=== PATIENT | male | born 1980 | race Caucasian/White ===

== ENCOUNTER → 2016-09-28 | Day surgery (SDC) | payer BC ==
[2016-09-17 13:58] VITALS: Ht 177.8 cm; Wt 95.5 kg
[~2016-09-28] VITALS: Ht 177.8 cm; Wt 95.5 kg
[~2016-09-28] MED LIST: ATROPINE SULFATE 0.1 MG/ML 5ML SYR IV PRN; EpHEDrine SULFATE INJ 50 MG/ML AMP IV PRN; FENTANYL CITRATE INJ 50 MCG/1 ML 2 ML VIAL ONE; LIDOCAINE HCL 2% 2 ML VIAL (20MG/ML) ONE; PROPOFOL IV EMULSION 10 MG/ML 20 ML VIAL IV ONE; PSYL48.59 PO
--- NOTE | 2016-09-28 11:45 | Endo History and Physical ---
History & Physical Date of Service: Sep 28, 2016. Chief Complaint: bowel habit change, diarrhea Referring Physician: Dr Jhon Stevens History of Present Illness 36 yo CM who presents for colonoscopy secondary to diarrhea. Past Surgical History Hx Cardiac Surgery: No Hx Internal Defibrillator: No Hx Pacemaker: No Hx Abdominal Surgery: No Hx of Implantable Prosthesis: No Hx Post-Op Nausea and Vomiting: No Hx Cancer Surgery: No Hx Thoracic Surgery: No Hx Orthopedic: Yes (BACK INJECTIONS WITH ANESTHESIA) Hx Urinary Tract Surgery: No Family History IBD Social History Smoking Status: Never Smoker Hx Substance Use: No Hx Alcohol Use: Yes (OCCASIONAL) Allergies Coded Allergies: No Known Allergies (Unverified , 09/17/16) Current Medications Reported Home Medications Medications Dose Route/Sig Max Daily Dose Days Date Category Metamucil (Psyllium) 48.57 % Pow 1 Tbs PO QAM 09/17/16 Reported Vital Signs Weight (Kilograms): 95.45 Height (Feet): 5 Height (Inches): 10 Date Time Temp Pulse Resp B/P Pulse Ox O2 Delivery O2 Flow Rate FiO2 09/28/16 11:23 37 66 20 109/61 98 Room Air Physical Exam General Appearance: WD/WN, no apparent distress Respiratory/Chest: Auscultation: breath sounds normal Cardiovascular: Heart Auscultation: RRR Abdomen: Bowel Sounds: normal Inspection & Palpation: soft, non-distended, no tenderness, guarding & rebound Assessment and Plan Assessment: 36 yo CM who presents for colonoscopy secondary to diarrhea. Plan: Proceed with colonoscopy.
--- NOTE | 2016-09-28 12:05 | Discharge Instructions ---
Endoscopy Patient Instructions Date / Procedure(s) Performed Sep 28, 2016. Colonoscopy Allergy Information Coded Allergies: No Known Allergies (Unverified , 09/17/16) Discharge Date / Findings Sep 28, 2016. Colon polyp Random colon biopsies Stool aspirate collected Medication Instructions Stopped Medication(s): metamucil Restart Stopped Medication(s): OK to resume all medications today as prescribed. Reported Home Medications Medications Dose Route/Sig Max Daily Dose Days Date Category Metamucil (Psyllium) 48.57 % Pow 1 Tbs PO QAM 09/17/16 Reported Provider Instructions Activity Restrictions - No exercising or heavy lifting for 24 hours. - Do not drink alcohol the day of the procedure. - Do not drive a car or operate machinery until the day after the procedure. - Do not make any important decisions or sign important papers in 24 hours after the procedure. Following Day: - Return to full activity which may include returning to work/school. Diet Start your diet with liquids and light foods (jello, soup, juice, toast). Then eat your usual diet if not nauseated. Treatment For Common After Affects For mild abdominal pain, bloating, or excessive gas: - Rest - Eat lightly - Lie on right side Follow-Up Information Follow-up with Dr Jhon Stevens as scheduled Anesthesia Information What You Should Know You have had a procedure that required some medicine to reduce anxiety and discomfort. This treatment is called moderate sedation. After receiving the treatment, you may be sleepy, but you will be able to breathe on your own. The effects of the treatment may last for several hours. Follow these instructions along with Activity/Diet recommendations noted above: * Do NOT do anything where dizziness or clumsiness would be dangerous. * Rest quietly at home today, then you can be up and about tomorrow. * Have a responsible person stay with you the rest of today. * You may have had an I.V. today. If so, you may take the dressing off later today. Recommendations Call your doctor if: * Trouble breathing * Continuous vomiting for more than 24 hours * Temperature above 101 degrees * Severe abdominal pain or bloating * Pain not relieved by pain medicine ordered * There is increased drainage or redness from any incision * A large amount of rectal bleeding greater than 2-3 tablespoons. (If you had a polyp/s removed or have hemorrhoids, a small amount of blood - from the rectum is to be expected.) * You have any unanswered questions or concerns. IN THE EVENT OF A SERIOUS EMERGENCY, GO TO THE NEAREST EMERGENCY ROOM Your discharge instructions were prepared by provider Ascencion Delvalle. Patient Instructions Signature Page Saul Garsia Patient (or Guardian) Signature/Date: I have read and understand the instructions given to me by my caregivers. Caregiver/RN/Doctor Signature/Date: The above-named patient and/or guardian has received patient instructions on this date. + Original Patient Signature Page (only) stays with chart. Please make copy for patient.
--- NOTE | 2016-09-28 12:10 | GI REPORT ---
Procedure Date: 09/28/2016 11:16 AM Procedure: Colonoscopy Indications: Chronic diarrhea Medicines: Monitored Anesthesia Care Complications: No immediate complications. Estimated Blood Loss: Estimated blood loss: none. Procedure: Pre-Anesthesia Assessment: - Prior to the procedure, a History and Physical was performed, and patient medications and allergies were reviewed. The patient's tolerance of previous anesthesia was also reviewed. The risks and benefits of the procedure and the sedation options and risks were discussed with the patient. All questions were answered, and informed consent was obtained. Prior Anticoagulants: The patient has taken no previous anticoagulant or antiplatelet agents. ASA Grade Assessment: II - A patient with mild systemic disease. After reviewing the risks and benefits, the patient was deemed in satisfactory condition to undergo the procedure. After I obtained informed consent, the scope was passed under direct vision. Throughout the procedure, the patient's blood pressure, pulse, and oxygen saturations were monitored continuously. The scope was introduced through the anus and advanced to the terminal ileum. The colonoscopy was performed without difficulty. The patient tolerated the procedure well. The quality of the bowel preparation was good. The terminal ileum, ileocecal valve, appendiceal orifice, and rectum were photographed. Findings: A 5 mm polyp was found in the transverse colon. The polyp was sessile. The polyp was removed with a hot snare. Resection and retrieval were complete. Multiple random biopsies were obtained with cold forceps for histology in the entire colon. Fluid aspiration for cytology was performed in the entire colon. Impression: - One 5 mm polyp in the transverse colon, removed with a hot snare. Resected and retrieved. - Multiple random biopsies were obtained in the entire colon. - Fluid aspiration was performed. Recommendation: - Resume previous diet. - Continue present medications. - Repeat colonoscopy for surveillance based on pathology results. - Return to primary care physician as previously scheduled. Ascencion Delvalle DO 09/28/2016 12:09:24 PM This report has been signed electronically. Note Initiated On: 09/28/2016 11:16 AM
[2016-09-28 12:37] VITALS: BP 114/58; PULSE 61; O2SAT 98
--- NOTE | 2016-09-28 12:40 | Anesthesiology Progress Note ---
Anesthesia Post Op Note Date & Time Sep 28, 2016 at 12:40 Vital Signs Pain Intensity: 0 Vital Signs Past 12 Hours Date Time Temp Pulse Resp B/P Pulse Ox O2 Delivery O2 Flow Rate FiO2 09/28/16 12:37 61 16 114/58 98 Room Air 09/28/16 12:22 64 16 133/60 98 Room Air 09/28/16 12:07 72 14 114/62 96 Room Air 09/28/16 11:23 37 66 20 109/61 98 Room Air Notes Mental Status: alert / awake / arousable, participated in evaluation Pt Amnestic to Procedure: Yes Nausea / Vomiting: adequately controlled Pain: adequately controlled Airway Patency, RR, SpO2: stable & adequate BP & HR: stable & adequate Hydration State: stable & adequate Anesthetic Complications: no major complications apparent
== END | disposition home or self-care (01) ==
LOC: C.GI 10:53
PROVIDERS: ATTEND Internal Medicine
DX: R19.7 Diarrhea, unspecified (principal); R19.4 Change in bowel habit; D12.3 Benign neoplasm of transverse colon; Z98.890 Other specified postprocedural states; E66.9 Obesity, unspecified

== ENCOUNTER → 2017-08-27 | Outpatient (CLI) | payer BC ==
[~2017-08-27] MED LIST changes: -ATROPINE SULFATE 0.1 MG/ML 5ML SYR IV PRN; -EpHEDrine SULFATE INJ 50 MG/ML AMP IV PRN; -FENTANYL CITRATE INJ 50 MCG/1 ML 2 ML VIAL ONE; +GABA-113 PO; +HYDR-4079 PO; -LIDOCAINE HCL 2% 2 ML VIAL (20MG/ML) ONE; -PROPOFOL IV EMULSION 10 MG/ML 20 ML VIAL IV ONE
--- NOTE | 2017-08-27 09:32 | DIAGNOSTIC IMAGING REPORT ---
CHEST 2 VIEWS ROUTINE CLINICAL HISTORY: CHRONIC IRITIS COMPARISON STUDY: Chest radiograph February 27, 2015. FINDINGS: Lung volumes are normal. No pneumothorax or pleural effusion is identified. Cardiac size is within normal limits. Mediastinal contours are unremarkable. There is no consolidation. There is apparent left lower lung reticulonodular interstitial thickening. This is likely within normal limits. IMPRESSION: 1. Apparent left lower lung reticulonodular interstitial thickening. This is likely within normal limits. However, subtle interstitial lung disease could have this appearance and a chest CT is recommended. 2. No acute cardiopulmonary findings. Electronically signed by: Radu Guevara M.D. 08/27/2017 9:31 AM Dictated Date/Time: 08/27/2017 9:24 AM
[2017-08-27 11:27] LABS: BASO % 0.2 %; BASO ABS # 0.02 K/uL (0-0.2); EOS % 0.4 %; EOS ABS # 0.05 K/uL (0-0.5); HEMATOCRIT 43.8 % (42-52); HEMOGLOBIN 14.9 g/dL (14.0-18.0); IG# 0.09 K/uL (0.00-0.02); LYMPH % 18.7 %; LYMPH ABS # 2.18 K/uL (1.2-3.4); MEAN CELL VOLUME 87.6 fL (80-100); MEAN CORPUSCULAR HEMOGLOBIN 29.8 pg (25-34); MEAN PLATELET VOLUME 9.2 fL (7.4-10.4); MONO % 7.1 %; MONO ABS # 0.83 K/uL (0.11-0.59); NEUT % 72.8 %; NEUT ABS # 8.48 K/uL (1.4-6.5); PLATELET COUNT 352 K/uL (130-400); RED CELL DISTRIBUTION WIDTH CV 13.1 % (11.5-14.5); RED CELL DISTRIBUTION WIDTH SD 41.7 fL (36.4-46.3); WHITE BLOOD COUNT 11.65 K/uL (4.8-10.8)
[2017-08-27 23:28] LABS: RAPID PLASMA REAGIN NONREACTIVE (NONREACT)
[2017-09-03 04:23] LABS: ANA SCREEN TC 249X NEGATIVE (NEGATIVE)
== END | disposition home or self-care (01) ==
LOC: C.RADBC 08:36
PROVIDERS: ATTEND Ophthalmology
DX: H20.10 Chronic iridocyclitis, unspecified eye (principal); R91.8 Other nonspecific abnormal finding of lung field

== ENCOUNTER → 2017-12-09 | Outpatient (CLI) | payer BC ==
[~2017-12-09] MED LIST changes: -GABA-113 PO; -HYDR-4079 PO
--- NOTE | 2017-12-09 13:56 | DIAGNOSTIC IMAGING REPORT ---
C-SPINE ROUTINE 4 OR 5 VIEWS CLINICAL HISTORY: Neck pain. Cervical radiculopathy. COMPARISON STUDY: No previous studies for comparison. FINDINGS: No cervical spine fracture is identified. There is mild disc space narrowing at C5-C6 and C6-C7. There is mild multilevel facet arthrosis. The left neural foramen are suboptimally assessed on this exam. IMPRESSION: 1. No cervical spine fracture. 2. Mild multilevel degenerative disc disease and facet arthrosis of the cervical spine. Electronically signed by: Radu Guevara M.D. 12/09/2017 1:55 PM Dictated Date/Time: 12/09/2017 1:54 PM
== END | disposition home or self-care (01) ==
LOC: C.RADBC 13:41
PROVIDERS: ATTEND Nurse Practitioner Adult Health
DX: M54.12 Radiculopathy, cervical region (principal)

== ENCOUNTER → 2017-12-22 | Outpatient (CLI) | payer BC ==
--- NOTE | 2017-12-22 14:34 | DIAGNOSTIC IMAGING REPORT ---
MRI OF THE CERVICAL SPINE WITHOUT IV CONTRAST CLINICAL HISTORY: Cervicalgia. Cervical disc bulge. COMPARISON STUDY: Radiographs of the cervical spine dated 12/09/2017. TECHNIQUE: MRI of the cervical spine is performed utilizing various T1 and T2-weighted sequences in the axial and sagittal planes. IV contrast was not administered for this examination. Examination is modestly degraded by motion artifact. FINDINGS: Cervical spine: Vertebral body height and alignment are maintained throughout the cervical spine. Normal marrow signal intensity is preserved throughout the visualized osseous structures. The atlantodental articulation appears maintained. The spinous processes are intact as visualized. No destructive bony lesion is seen. Intervertebral discs: Mild degenerative disc desiccation is seen throughout the cervical spine. The disc spaces are preserved. Spinal cord: The cervical spinal cord is normal in morphology and signal intensity. C2-C3: Uncovertebral and facet arthropathy cause moderate right and mild left neural foraminal stenosis. The central canal is widely patent. C3-C4: Unremarkable. C4-C5: Uncovertebral and facet arthropathy cause moderate left neural foraminal stenosis. The central canal and right neural foramen appear patent. C5-C6: A posterior disc osteophyte complex eccentric to the left effaces the ventral subarachnoid space. Uncovertebral and facet arthropathy cause mild right greater than left neural foraminal stenosis. C6-C7: A posterior disc osteophyte complex eccentric to the left abuts the ventral cord. This also abuts the transiting left-sided nerve root. Uncovertebral and facet arthropathy cause moderate to severe left greater than right neural foraminal stenosis. C7-T1: A large posterior disc osteophyte complex eccentric to the left abuts the ventral cord. This also abuts the transiting left-sided nerve root. In conjunction with facet arthropathy there is severe left neural foraminal stenosis. There is moderate right neural foraminal stenosis at this level. T1-T2: Unremarkable. Soft tissues: The prevertebral and paraspinous soft tissues are within normal limits. Brain parenchyma: The partially visualized brain parenchyma at the skull base is normal in appearance. IMPRESSION: 1. There are posterior disc osteophyte complexes at C5-C6, C6-C7, and C7-T1. These abut the ventral cord at the C6-C7 and C7-T1 levels. 2. See discussion for detailed level by level analysis. 3. The cervical spinal cord is normal in morphology and signal intensity. 4. No destructive bony process is identified. Dictated: 12/22/2017 1:59 PM Transcribed: 12/22/2017 2:34 PM [facility] Electronically signed by: Flash Corley M.D. 12/22/2017 2:38 PM Dictated Date/Time: 12/22/2017 1:59 PM
== END | disposition home or self-care (01) ==
LOC: C.MRIBC 12:14
PROVIDERS: ATTEND Orthopaedic Surgery Orthopaedic Surgery of the Spine
DX: M47.22 Other spondylosis with radiculopathy, cervical region (principal); M25.78 Osteophyte, vertebrae

== ENCOUNTER → 2018-01-14 | Outpatient (CLI) | payer BC ==
--- NOTE | 2018-01-14 09:22 | DIAGNOSTIC IMAGING REPORT ---
(CHEST) THORAX WITHOUT CLINICAL HISTORY: 37 years-old Male presenting with R93.8 Abnormal chest [id number]. TECHNIQUE: Multidetector CT imaging of the chest was performed without the use of intravenous contrast. IV contrast: None. A dose lowering technique was used consistent with the principles of ALARA (as low as reasonably achievable). COMPARISON: Chest x-ray from 08/27/2017. CT DOSE (mGy.cm): The estimated cumulative dose is 426.95 mGy.cm. FINDINGS: [employer] topogram: Unremarkable. On soft tissue windows, normal thyroid and thoracic inlet. No axillary, supraclavicular, or mediastinal lymphadenopathy. Evaluation of the nain limited without intravenous contrast. Residual thymic tissue noted in the anterior mediastinum. Four-vessel aortic arch. Normal heart size. No pericardial or pleural effusion. Upper abdomen normal. On lung windows, no focal infiltrate or nodule. Airways patent. On bone windows, normal osseous structures. IMPRESSION: 1. No acute intrathoracic pathology. Electronically signed by: Jhon Coker M.D. 01/14/2018 9:21 AM Dictated Date/Time: 01/14/2018 9:17 AM
== END | disposition home or self-care (01) ==
LOC: C.CTS 09:06
PROVIDERS: ATTEND Physician Assistant
DX: R93.8 Abnormal findings on diagnostic imaging of other specified body structures (principal)